=== PATIENT | male | born 1970 | race Caucasian/White ===

== ENCOUNTER 2017-02-08 19:16 | Emergency (ER) | payer OTHER ==
[~2017-02-08] VITALS: Ht 172.7 cm; Wt 81.6 kg
[~2017-02-08 19:16] MED LIST: BACTROBAN OINT22 GM PO; CYCLOBENZAPRINE5 M3 PO; HYDROCODONE BIT1 T11 PO; KEFLEX500 MG PO; LISINOPRIL-HCTZ 10-1; LISINOPRIL10 MG PO; LORAZEPAM1 MG PO; MOTRIN800 MG PO; Motrin,Rufen800 MG PO; NEURONTIN100 MG PO; NEURONTIN300 MG PO; NORCO 325 MG-51 TAB PO; PERCOCET 325 MG1 TAB PO; ROBITUSSIN AC 10 MG/ PO; ULTRAM50 MG PO; ZITHROMAX Z PA250 MG PO
[2017-02-08] MEDS ORDERED: PROZAC40 M1 PO (19:21)
[2017-02-08] MEDS ORDERED: HYDR25T PO (19:21)
[2017-02-08 19:39] LABS: BASO % 0.2 % (0.0-1.0); EOS # 0.2 10*3/uL (0.0-0.4); EOS % 1.1 % (1.0-4.0); HEMATOCRIT 35.6 % (42.0-52.0); HEMOGLOBIN 12.3 g/dl (14.0-18.0); IG # 0.1 10*3/uL (0.0-0.1); LYMPH # 2.7 10*3/uL (1.3-4.4); LYMPH % 16.4 % (27.0-41.0); MEAN CELL VOLUME 94.9 fl (80.0-94.0); MEAN CORPUSCULAR HGB 32.8 pg (27.0-31.0); MEAN CORPUSCULAR HGB CONC 34.6 g/dl (33.0-37.0); MEAN PLATELET VOLUME 8.4 fl (9.6-12.3); MONO % 6.1 % (3.0-9.0); NEUT # 12.6 10*3/uL (2.3-7.9); NEUT % 75.5 % (47.0-73.0); PLATELET COUNT AUTOMATED 398 10*3/uL (130-400); RED BLOOD COUNT 3.75 10*6/uL (4.50-5.90); RED CELL DISTRI WIDTH 11.7 % (0-14.5); WHITE BLOOD COUNT 16.7 10*3/uL (4.8-10.8)
[2017-02-08 19:53] LABS: ALBUMIN 3.8 gm/dl (3.1-4.5); ALKALINE PHOSPHATASE 68 U/L (45-117); BILIRUBIN, TOTAL 0.1 mg/dl (0.2-1.0); BUN 14 mg/dl (7-24); CARBON DIOXIDE 25 mmol/L (21-32); CHLORIDE 105 mmol/L (98-107); EST GLOM FILT AFRICAN AMERICAN > 60 ml/min; GLUCOSE 206 mg/dL (65-99); POTASSIUM 3.5 mmol/L (3.5-5.1); SGOT/AST 28 IU/L (3-35); SGPT/ALT 39 U/L (12-78); SODIUM 141 mmol/L (136-145); TOTAL PROTEIN 6.8 gm/dL (6.4-8.2)
[2017-02-08 19:59] LABS: BILIRUBIN NEGATIVE (NEGATIVE); BLOOD NEGATIVE (NEGATIVE); CLARITY CLEAR (CLEAR); COLOR YELLOW (YELLOW); GLUCOSE NEGATIVE (NEGATIVE); KETONE NEGATIVE (NEGATIVE); LEUKO ESTERASE NEGATIVE (NEGATIVE); NITRITE NEGATIVE (NEGATIVE); PROTEIN NEGATIVE (NEGATIVE); SPECIFIC GRAVITY 1.015 (1.005-1.030); UROBILINOGEN 0.2 E.U./dl (0.2-1.0)
[2017-02-08 20:04] LABS: BACTERIA TRACE; EPITHELIAL CELLS 0-2; URINE REFLEX COMMENT NO (NO)
[2017-02-08 20:13] LABS: URINE AMPHETAMINES < 1000 (1000ng/ml); URINE BARBITURATES < 200 (200ng/ml)
[2017-02-08 20:16] LABS: URINE COCAINE < 300 (300ng/ml)
[2017-02-09 01:00] VITALS: BP 146/78
== END 2017-02-09 03:18 | disposition home or self-care (01) ==
LOC: ED 19:16
PROVIDERS: Emergency Medicine
DX: T50.901A Poisoning by unspecified drugs, medicaments and biological substances, accidental (unintentional), initial encounter (principal); R40.20 Unspecified coma; Z88.0 Allergy status to penicillin; Z79.899 Other long term (current) drug therapy; Y92.9 Unspecified place or not applicable

== ENCOUNTER 2017-02-12 14:00 | Emergency (ER) | payer OTHER ==
[~2017-02-12] VITALS: Ht 172.7 cm; Wt 74.8 kg
[~2017-02-12 14:00] MED LIST changes: +HYDR25T PO; +PROZAC40 M1 PO
[2017-02-12 15:17] LABS: BASO % 0.2 % (0.0-1.0); EOS # 0.1 10*3/uL (0.0-0.4); EOS % 1.1 % (1.0-4.0); HEMATOCRIT 37.8 % (42.0-52.0); HEMOGLOBIN 13.1 g/dl (14.0-18.0); IG # 0.1 10*3/uL (0.0-0.1); LYMPH # 2.8 10*3/uL (1.3-4.4); LYMPH % 21.1 % (27.0-41.0); MEAN CELL VOLUME 95.2 fl (80.0-94.0); MEAN CORPUSCULAR HGB CONC 34.7 g/dl (33.0-37.0); MEAN PLATELET VOLUME 8.7 fl (9.6-12.3); MONO # 0.9 10*3/uL (0.1-1.0); MONO % 7.1 % (3.0-9.0); NEUT # 9.2 10*3/uL (2.3-7.9); NEUT % 69.9 % (47.0-73.0); PLATELET COUNT AUTOMATED 419 10*3/uL (130-400); RED BLOOD COUNT 3.97 10*6/uL (4.50-5.90); RED CELL DISTRI WIDTH 11.7 % (0-14.5); WHITE BLOOD COUNT 13.1 10*3/uL (4.8-10.8)
[2017-02-12 15:25] LABS: INTERNATIONAL NORM RATIO 0.9 (2.0-3.5); PROTHROMBIN TIME 9.7 SECONDS (9.0-12.4)
[2017-02-12 15:32] LABS: ALBUMIN 3.8 gm/dl (3.1-4.5); ALKALINE PHOSPHATASE 80 U/L (45-117); BILIRUBIN, TOTAL 0.2 mg/dl (0.2-1.0); BUN 9 mg/dl (7-24); C-REACTIVE PROTEIN < 0.29 MG/DL (0-0.3); CARBON DIOXIDE 27 mmol/L (21-32); CHLORIDE 110 mmol/L (98-107); CPK 73 U/L (39-308); EST GLOM FILT AFRICAN AMERICAN > 60 ml/min; GLUCOSE 99 mg/dL (65-99); POTASSIUM 3.6 mmol/L (3.5-5.1); SGOT/AST 12 IU/L (3-35); SGPT/ALT 27 U/L (12-78); SODIUM 143 mmol/L (136-145); TOTAL PROTEIN 7.1 gm/dL (6.4-8.2); TROPONIN I < 0.015 ng/ml (<0.045)
[2017-02-12 15:33] LABS: HEMOGLOBIN A1c 5.7 % (4.8-5.6)
[2017-02-12 15:37] LABS: THYROID STIM HORMONE (HS) 0.229 uIU/ml (0.358-4.75)
[2017-02-12 16:20] LABS: BILIRUBIN NEGATIVE (NEGATIVE); BLOOD NEGATIVE (NEGATIVE); CLARITY CLEAR (CLEAR); COLOR YELLOW (YELLOW); GLUCOSE NEGATIVE (NEGATIVE); KETONE NEGATIVE (NEGATIVE); LEUKO ESTERASE NEGATIVE (NEGATIVE); NITRITE NEGATIVE (NEGATIVE); PH 5.5 (5.0-9.0); PROTEIN NEGATIVE (NEGATIVE); SPECIFIC GRAVITY 1.015 (1.005-1.030); UROBILINOGEN 0.2 E.U./dl (0.2-1.0)
[2017-02-12 16:29] LABS: MUCOUS TRACE; URINE AMPHETAMINES < 1000 (1000ng/ml); URINE BARBITURATES < 200 (200ng/ml); URINE COCAINE < 300 (300ng/ml); URINE REFLEX COMMENT NO (NO)
[2017-02-12 17:09] VITALS: BP 127/82
== END 2017-02-12 17:56 | disposition home or self-care (01) ==
LOC: ED 14:00
PROVIDERS: Internal Medicine
DX: R41.82 Altered mental status, unspecified (principal); R53.83 Other fatigue; F17.200 Nicotine dependence, unspecified, uncomplicated; Z88.0 Allergy status to penicillin; Z79.899 Other long term (current) drug therapy

== ENCOUNTER → 2017-03-05 | Outpatient (CLI) | payer OTHER | END | disposition home or self-care (01) | LOC: CARD 02:50 | DX: I49.9 Cardiac arrhythmia, unspecified (principal); I25.2 Old myocardial infarction; I08.1 Rheumatic disorders of both mitral and tricuspid valves ==

== ENCOUNTER → 2017-03-23 | Outpatient (CLI) | payer OTHER ==
[~2017-03-23] MED LIST changes: +IBU800 MG PO
--- NOTE | ~2017-03-23 | ST ---
[place], [place] EXERCISE STRESS TEST REPORT NAME: PATI WILLIS [facility] #: [id number] UNIT #: [id number] ROOM: DOCTOR: GEETA MEMBRENO MD BIRTHDATE: [birth year] DOS: 03/23/2017 INDICATIONS: Palpitations, abnormal resting electrocardiogram. PROCEDURE: The patient exercised on a full [place] protocol for 12 minutes and achieved a maximum heart rate of 154, which was 88% of his maximum predicted heart rate at a workload of 12.5 mets. His resting blood pressure 130/78, beltran to 180/82. He had no diagnostic electrocardiographic changes and no chest pain or arrhythmias with the test. One minute prior to completion of the exercise protocol, he was given radionuclide intravenously. Dow treadmill score is 12.0 consistent with a low risk for future cardiac events. IMPRESSION: 1. Excellent exercise capacity. 2. Dow treadmill score 12.0 consistent with low risk. 3. Radionuclide was administered. Please see the separate imaging report for further details of the patient's stress test results. GEETA MEMBRENO MD CM:STRESS:EXERCISE STRESS TEST REPORT [id number] GEETA MEMBRENO MD
--- NOTE | 2017-03-23 11:30 | NUR ---
INFORMED CONSENT OBTAINED FOR EXERCISE CARDIOLITE STRESS TEST WITH DR. MEMBRENO. RESTING EKG NSR WITH A RESTING HR OF 67 WITH BP OF 130/78 AND HR OF 60 WITH BP OF 128/80 IN STANDING POSITION. PT COMPLETED A TOTAL OF 12:00 OF A PRISCILLA PROTOCOL WITH COMPLETION OF STAGE IV AT 4.2 MPH AND 16% GRADE. REACHED A PEAK HR OF 154 WHICH IS 88% OF PREDICTED MAX WITH A PEAK BP OF 180/82. TEST TERMINATED BECAUSE OF FATIGUE. HAD NO CHEST PAIN OR ANY EKG CHANGES. HAS A HIGH EXERCISE TOLERANCE. LAST RECOVERY HR OF 89 WITH BP OF 154/84. AWAITING SCANNING IN STABLE CONDITION.
== END | disposition home or self-care (01) ==
LOC: CARD 02:51
DX: R94.31 Abnormal electrocardiogram [ECG] [EKG] (principal)

== ENCOUNTER → 2017-05-08 | Outpatient (CLI) | payer OTHER ==
[2017-05-08 16:47] LABS: BASO % 0.3 % (0.0-1.0); EOS # 0.3 10*3/uL (0.0-0.4); EOS % 3.1 % (1.0-4.0); HEMATOCRIT 39.8 % (42.0-52.0); HEMOGLOBIN 13.7 g/dl (14.0-18.0); LYMPH # 3.6 10*3/uL (1.3-4.4); LYMPH % 41.2 % (27.0-41.0); MEAN CELL VOLUME 95.7 fl (80.0-94.0); MEAN CORPUSCULAR HGB 32.9 pg (27.0-31.0); MEAN CORPUSCULAR HGB CONC 34.4 g/dl (33.0-37.0); MEAN PLATELET VOLUME 8.9 fl (9.6-12.3); MONO # 0.9 10*3/uL (0.1-1.0); MONO % 9.9 % (3.0-9.0); NEUT % 44.9 % (47.0-73.0); PLATELET COUNT AUTOMATED 355 10*3/uL (130-400); RED BLOOD COUNT 4.16 10*6/uL (4.50-5.90); RED CELL DISTRI WIDTH 11.8 % (0-14.5); WHITE BLOOD COUNT 8.8 10*3/uL (4.8-10.8)
== END | disposition home or self-care (01) ==
LOC: LAB 16:28
PROVIDERS: Nurse Practitioner Primary Care
DX: J40 Bronchitis, not specified as acute or chronic (principal); I10 Essential (primary) hypertension; F17.200 Nicotine dependence, unspecified, uncomplicated; R09.89 Other specified symptoms and signs involving the circulatory and respiratory systems

== ENCOUNTER 2019-05-05 12:08 | Inpatient (IN) | payer OTHER ==
[~2019-05-05] VITALS: Ht 171.4 cm; Wt 89.1 kg
[2019-05-05 12:38] LABS: HEMATOCRIT 41.8 % (42.0-52.0); MEAN CELL VOLUME 98.4 fl (80.0-94.0); MEAN CORPUSCULAR HGB 32.9 pg (27.0-31.0); MEAN CORPUSCULAR HGB CONC 33.5 g/dl (33.0-37.0); MEAN PLATELET VOLUME 9.4 fl (9.6-12.3); PLATELET COUNT AUTOMATED 399 10*3/uL (130-400); RED BLOOD COUNT 4.25 10*6/uL (4.50-5.90); WHITE BLOOD COUNT 16.8 10*3/uL (4.8-10.8)
[2019-05-05 13:09] LABS: PLATELET SUFFICIENCY NORMAL (NORMAL); TOTAL CELLS COUNTED 100 #CELLS
[2019-05-05 18:00] VITALS: BP 142/96
--- NOTE | 2019-05-05 18:00 | NUR ---
A 49, admitted to 5E, under the services of ALFRED Maza MD with a diagnosis of CELLULITIS RIGHT AXILLA,SEPSIS. Chief complaint is CELLULITIS. Patient arrived via stretcher from [place]. Monitor applied. Initial assessment completed. Vital signs taken and recorded. DR. BRETT BARRERA,ALFRED notified of admission to the unit. Orders received. See assessment for past medical history, medications and allergies. Patient and/or family oriented to unit. [address] visitation policy reviewed. Clothing/patient valuable form completed. JOSE HOWE
[2019-05-05] MEDS ORDERED: BUSPAR15 MG PO (18:25)
[2019-05-05] MEDS ORDERED: PROTONIX40 MG PO (18:28)
[2019-05-05] MEDS ORDERED: ZESTRIL20 MG PO (18:30)
[2019-05-05] MEDS ORDERED: CYMBALTA60 MG PO (18:34)
[2019-05-05] MEDS ORDERED: CYCLOBENZAPRINE10 MG PO (18:35)
[2019-05-05] MEDS ORDERED: PREDNISONE5 MG PO (18:36)
[2019-05-05] MEDS ORDERED: CELEBREX100 MG PO (18:37)
[2019-05-05] MEDS ORDERED: LOPRESSOR25 MG PO (18:39)
--- NOTE | 2019-05-05 19:00 | NUR ---
PHOTO TAKEN OF CELLULITIS AREA TO RIGHT AXILLA
[2019-05-05 20:00] VITALS: BP 133/89
[2019-05-05 21:52] LABS: BUN 10 mg/dl (7-24); CHLORIDE 107 mmol/L (98-107); CREATININE 0.96 mg/dL (0.70-1.30); POTASSIUM 3.7 mmol/L (3.5-5.1); SODIUM 137 mmol/L (136-145)
[2019-05-06] VITALS: BP 126/84
[2019-05-06 06:36] LABS: BASO # 0.1 10*3/uL (0.0-0.1); BASO % 0.4 % (0.0-1.0); EOS # 0.3 10*3/uL (0.0-0.4); EOS % 2.7 % (1.0-4.0); LYMPH # 2.4 10*3/uL (1.3-4.4); LYMPH % 20.6 % (27.0-41.0); MEAN CELL VOLUME 99.5 fl (80.0-94.0); MEAN CORPUSCULAR HGB 33.2 pg (27.0-31.0); MEAN CORPUSCULAR HGB CONC 33.3 g/dl (33.0-37.0); MEAN PLATELET VOLUME 8.8 fl (9.6-12.3); MONO % 8.5 % (3.0-9.0); NEUT # 7.6 10*3/uL (2.3-7.9); NEUT % 66.6 % (47.0-73.0); PLATELET COUNT AUTOMATED 360 10*3/uL (130-400); RED BLOOD COUNT 3.92 10*6/uL (4.50-5.90); RED CELL DISTRI WIDTH 12.2 % (0-14.5); WHITE BLOOD COUNT 11.4 10*3/uL (4.8-10.8)
--- NOTE | 2019-05-06 06:38 | NUR ---
CONSULT CALLED TO DR NO
[2019-05-06 06:46] LABS: ALBUMIN 3.2 gm/dl (3.1-4.5); CHLORIDE 105 mmol/L (98-107); POTASSIUM 4.2 mmol/L (3.5-5.1); SODIUM 138 mmol/L (136-145)
[2019-05-06 06:54] LABS: ALKALINE PHOSPHATASE 93 U/L (45-117); BUN 10 mg/dl (7-24); CHOLESTEROL 203 mg/dL (<200); HDL CHOLESTEROL 35 mg/dl (40-60); LDL CHOLESTEROL 127 mg/dL (9-159); PHOSPHOROUS 3.3 mg/dL (2.5-4.9); SGOT/AST 25 IU/L (3-35); SGPT/ALT 39 U/L (12-78); TRIGLYCERIDES 205 mg/dl (<150); VLDL CHOLESTEROL 41 mg/dL (6-40)
--- NOTE | 2019-05-06 07:15 | NUR ---
Spoke with Dr. Burnett regarding patient he stated to keep patient NPO and will evaluate when he gets here.
[2019-05-06 08:00] VITALS: BP 136/88
--- NOTE | 2019-05-06 08:07 | NUR ---
PATI WILLIS [id number] Please refer to the physician's history and physical for past medical history, comorbid conditions, and allergies. Diagnosis: CELLULITIS OF AXILLA,RIGHT Estiven Score: 22,LOW OR NO RISK WOUND DESCRIPTIONS: Wound Number: 1 Location of the wound: right below axilla Thickness: Partial Size: 12.5cm x 13.0cm x <0.1cm Tunneling: none Undermining: none Sinus Tract: none Presence of Exudate: none Amount: None Color: Red Odor: None Periwound Skin Appearance: Induration Wound edges: closed at time of assessment Pain (associated with wound): tender to touch How does patient state this happened? pt stated this started on sunday as redness and the lump just keeps getting bigger he was seen by Dr. Roberts yesterday and he sent him into the hosptial to be evaluated. He stated he has never had anything like this before. He denied having history of MRSA or being bit by anything. Surface the patient is resting on: Isoflex SKIN PREVENTION RECOMMENDATION: 1. Pressure redistribution support surface as appropriate 2. Elevate heels 3. Remove boots/TEDS every shift and reapply 4. Head of bed 30 degrees as tolerated 5. Assess nutrition and hydration 6. Manage moisture 7. Avoid the use of containment devices while in bed 8. Use absorptive products on surfaces limit layers of linens on bed 9. Turn and reposition every 1-2 hours in bed and every 1 hour in chair as tolerated 10. Weight shifts every 15 minutes while up in chair 11. Offloading with pillows or device to keep heels elevated off bed 12. Monitor skin at least every shift 13. Inspect under medical devices twice a day WOUND TREATMENT RECOMMENDATIONS: Dr. Burnett already consulted for area. Warm compress QID until evaluated by Dr. Burnett.
--- NOTE | 2019-05-06 09:04 | NUR ---
Dr. Melendrez notified of wound care recommendations.
--- NOTE | 2019-05-06 10:48 | NUR ---
PT MEDICATED FOR PAIN OF 10/10 TO RIGHT AXILLA AT THIS TIME. IV MS GIVEN WILL CONT TO MONITOR. CALL LIGHT IN REACH.
--- NOTE | 2019-05-06 11:10 | NUR ---
BEDSIDE I&D PERFORMED BY DR NO. PT TOLERATED WELL. PHOTOS OBTAINED.
--- NOTE | 2019-05-06 11:48 | NUR ---
PT STATES PAIN HAS SUBSIDED AFTER MS. WILL CONT TO MONITOR. CALL LIGHT IN REACH.
[2019-05-06 12:00] VITALS: BP 131/78
--- NOTE | 2019-05-06 12:13 | NUR ---
PT STATES PAIN COMING BACK TO RIGHT AXILLA OF 02/05. NORCO GIVEN AT THIS TIME PER REQUEST. WILL CONT TO MONITOR. CALL LIGHT IN REACH.
--- NOTE | 2019-05-06 13:33 | NUR ---
Production Staff Worker in to talk to patient. Patient states lives at HOME with . There are FEW steps in the home. Physician: LUDY JIMENEZ Pharmacy: [facility] health services: NONE Patient's level of ADLs: INDEPENDENT Patient has working utilities: YES DME: NONE Follow-up physician's appointment after d/c: WILL BE MADE BY HOSPITALIST NURSE DIRECTOR ON DISCHARGE Does patient want to access PORTAL?: NO Discharge plan PT LIVES AT HOME WITH HSUBAND AND IS INDEPENDENT IN HER CARE. STATES SHE WILL HAVE ANY NEEDS ON DISCHARGE. PT WILL RETURN HOME WHEN MEDICALLY STABLE. WILL CONTINUE TO FOLLOW. WILL TAKE HER HOME ON DISCHARGE.. BRIAN SALAMANCA
[2019-05-06 16:00] VITALS: BP 122/77; BP 127/64
[2019-05-06 20:00] VITALS: BP 134/80
--- NOTE | 2019-05-06 20:03 | NUR ---
VANC STARTED AT THIS TIME. PATIENT C/O IV BURNING. THIS NURSE OFFERED TO CHANGE SITE MULTIPLE TIMES, PATIENT DENIES.STATES HE DOESNT WANT STUCK AGAIN. IV FLUSHES EASY AND NO REDENESS NOTED. INFUSION SLOWED DOWN. WILL CONTINUE TO MONITOR.
--- NOTE | 2019-05-06 20:10 | NUR ---
PATIENT REQUESTING BOTH NORCO AND MORPHINE TO BE GIVEN AT THE SAME TIME. EXPLAINED TO PATIENT IF THE NORCO IS NOT EFFECTIVE WE CAN TRY THE MORPHINE BUT BOTH CAN NOT BE GIVEN TOGETHER AT THE SAME TIME. PATIENT MEDICATED WITH NORCO AT THIS TIME FOR COMPLAINTS OF RIGHT AXILLARY PAIN. RATES 02/05. WILL CHECK EFFECTIVENESS.
--- NOTE | 2019-05-06 23:14 | NUR ---
PATIENT STILL C/O RIGHT AXILLARY PAIN. STATES NORCO WASNT EFFECTIVE. RATES PAIN 9/10. MEDICATED WITH IV MORPHINE. WILL CHECK EFFECTIVENESS.
[2019-05-07] VITALS: BP 134/77
--- NOTE | 2019-05-07 05:04 | NUR ---
Patient stated that he will follow up in the wound care center next sunday with Dr. Burnett.
[2019-05-07 06:26] LABS: BASO # 0.1 10*3/uL (0.0-0.1); BASO % 0.7 % (0.0-1.0); EOS # 0.3 10*3/uL (0.0-0.4); EOS % 3.1 % (1.0-4.0); HEMATOCRIT 38.2 % (42.0-52.0); HEMOGLOBIN 12.4 g/dl (14.0-18.0); LYMPH # 2.4 10*3/uL (1.3-4.4); LYMPH % 26.4 % (27.0-41.0); MEAN CELL VOLUME 100.8 fl (80.0-94.0); MEAN CORPUSCULAR HGB 32.7 pg (27.0-31.0); MEAN CORPUSCULAR HGB CONC 32.5 g/dl (33.0-37.0); MEAN PLATELET VOLUME 8.8 fl (9.6-12.3); MONO # 0.8 10*3/uL (0.1-1.0); MONO % 9.4 % (3.0-9.0); NEUT # 5.3 10*3/uL (2.3-7.9); NEUT % 58.8 % (47.0-73.0); PLATELET COUNT AUTOMATED 371 10*3/uL (130-400); RED BLOOD COUNT 3.79 10*6/uL (4.50-5.90); RED CELL DISTRI WIDTH 11.9 % (0-14.5)
[2019-05-07 06:53] LABS: BUN 14 mg/dl (7-24); CHLORIDE 105 mmol/L (98-107); CREATININE 0.82 mg/dL (0.70-1.30); POTASSIUM 4.4 mmol/L (3.5-5.1); SODIUM 137 mmol/L (136-145)
[2019-05-07 06:54] LABS: ACT PARTIAL THROMBO TIME 27.9 SECONDS (20.0-32.1); INTERNATIONAL NORM RATIO 0.9 (2.0-3.5)
--- NOTE | 2019-05-07 08:21 | NUR ---
PT MEDICATED WITH PRN MORPHINE AT 0821 FOR C/O RIGHT AXILLA PAIN. PT RATES PAIN 04/08. WILL REACCESS.
--- NOTE | 2019-05-07 09:04 | NUR ---
Follow up with Dr. Burnett in wound care clinic on 05/13/19 at 10:30am, call [phone] with any concerns
[2019-05-07 12:00] VITALS: BP 126/99
--- NOTE | 2019-05-07 12:28 | NUR ---
PT CONTINUES TO DENY NEEDS AT HOME. WILL CONTINUE TO FOLLOW.
[2019-05-07 16:00] VITALS: BP 125/46
[2019-05-07 20:00] VITALS: BP 130/83
--- NOTE | 2019-05-07 21:02 | NUR ---
MORPHINE GIVEN FOR PAIN RATED "7 OR 8" ON 0-10 SCALE IN RT AXILLA AREA. CALL LIGHT IN REACH. WILL MONITOR.
--- NOTE | 2019-05-07 23:21 | NUR ---
PT C/O PAIN UNDER ARMPIT AND LOWER BACK RATING IT AN 8/10 ON THE PAIN SCALE. MEDICATED WITH PRN NORCO. WILL CHECK EFFECTIVENESS. CALL LIGHT WITHIN REACH.
[2019-05-08] VITALS: BP 135/88
--- NOTE | 2019-05-08 00:15 | NUR ---
PT STATES PAIN MED WAS EFFECTIVE RATING PAIN A 5/1O. WILL CONTINUE TO MONITOR. CALL LIGHT WITHIN REACH.
--- NOTE | 2019-05-08 02:02 | NUR ---
Patient sleeping. Respirations relaxed and easy. No signs of distress noted. Siderails up. Wheelocks on. BARBARA DIAZ
[2019-05-08 06:40] LABS: BASO % 0.5 % (0.0-1.0); EOS # 0.2 10*3/uL (0.0-0.4); EOS % 2.8 % (1.0-4.0); HEMATOCRIT 37.5 % (42.0-52.0); HEMOGLOBIN 12.5 g/dl (14.0-18.0); LYMPH # 2.6 10*3/uL (1.3-4.4); LYMPH % 34.8 % (27.0-41.0); MEAN CELL VOLUME 98.2 fl (80.0-94.0); MEAN CORPUSCULAR HGB 32.7 pg (27.0-31.0); MEAN CORPUSCULAR HGB CONC 33.3 g/dl (33.0-37.0); MEAN PLATELET VOLUME 8.4 fl (9.6-12.3); MONO # 0.8 10*3/uL (0.1-1.0); NEUT # 3.8 10*3/uL (2.3-7.9); NEUT % 49.9 % (47.0-73.0); PLATELET COUNT AUTOMATED 369 10*3/uL (130-400); RED BLOOD COUNT 3.82 10*6/uL (4.50-5.90); RED CELL DISTRI WIDTH 11.8 % (0-14.5); WHITE BLOOD COUNT 7.6 10*3/uL (4.8-10.8)
[2019-05-08 06:51] LABS: BUN 14 mg/dl (7-24); CHLORIDE 106 mmol/L (98-107); CREATININE 0.79 mg/dL (0.70-1.30); POTASSIUM 4.2 mmol/L (3.5-5.1); SODIUM 140 mmol/L (136-145)
[2019-05-08] MEDS ORDERED: DOXYCYCLINE100 M3 PO (10:48)
--- NOTE | 2019-05-08 11:30 | NUR ---
Discharge instructions reviewed with patient/family. Patient receptive and verbalizes understanding. Follow-up care arranged. Written instructions given to patient/family. KUSUM RANDOLPH
[2019-05-08 12:00] VITALS: BP 117/85
--- NOTE | 2019-05-08 12:03 | NUR ---
PATIENT REFUSES D/C WOUND PICS. STATES THE DRESSING WAS JUST CHANGED AND HE DOES NOT WANT IT TAKEN OFF.
--- NOTE | 2019-05-08 13:11 | NUR ---
PT CONTINUES TO DENY NEEDS ON DISCHARGE. WILL CONTINUE TO FOLLOW.
== END 2019-05-08 11:40 | disposition home or self-care (01) | DRG 872 ==
LOC: ZRVPFM 12:08 → 5E 17:47
PROVIDERS: Family Medicine; Internal Medicine; Nurse Practitioner Primary Care; ADMIT Family Medicine
PROC: 0X940ZZ Drainage of Right Axilla, Open Approach (ICD-10-PCS; principal; 2019-05-07)
DX: A41.9 Sepsis, unspecified organism (principal); L03.111 Cellulitis of right axilla; L02.411 Cutaneous abscess of right axilla; I10 Essential (primary) hypertension; D75.89 Other specified diseases of blood and blood-forming organs; F41.8 Other specified anxiety disorders; B95.62 Methicillin resistant Staphylococcus aureus infection as the cause of diseases classified elsewhere; F17.210 Nicotine dependence, cigarettes, uncomplicated; K21.9 Gastro-esophageal reflux disease without esophagitis; I25.2 Old myocardial infarction; Z82.49 Family history of ischemic heart disease and other diseases of the circulatory system; Z88.0 Allergy status to penicillin; Z91.030 Bee allergy status; Z79.899 Other long term (current) drug therapy; Z71.6 Tobacco abuse counseling

== ENCOUNTER 2019-05-15 17:50 | Inpatient (IN) | payer OTHER ==
[~2019-05-15] VITALS: Ht 170.1 cm; Wt 88.6 kg
[2019-05-15 17:53] VITALS: BP 156/102
[2019-05-15 18:46] LABS: BASO # 0.1 10*3/uL (0.0-0.1); BASO % 0.4 % (0.0-1.0); EOS # 0.2 10*3/uL (0.0-0.4); EOS % 1.3 % (1.0-4.0); LYMPH # 3.8 10*3/uL (1.3-4.4); LYMPH % 26.1 % (27.0-41.0); MEAN CELL VOLUME 96.9 fl (80.0-94.0); MEAN CORPUSCULAR HGB 33.2 pg (27.0-31.0); MEAN CORPUSCULAR HGB CONC 34.2 g/dl (33.0-37.0); MEAN PLATELET VOLUME 8.8 fl (9.6-12.3); MONO # 1.1 10*3/uL (0.1-1.0); MONO % 7.4 % (3.0-9.0); NEUT # 9.1 10*3/uL (2.3-7.9); NEUT % 63.1 % (47.0-73.0); PLATELET COUNT AUTOMATED 454 10*3/uL (130-400); RED BLOOD COUNT 3.92 10*6/uL (4.50-5.90); RED CELL DISTRI WIDTH 11.9 % (0-14.5); WHITE BLOOD COUNT 14.5 10*3/uL (4.8-10.8)
[2019-05-15 19:01] LABS: ALBUMIN 3.7 gm/dl (3.1-4.5); ALKALINE PHOSPHATASE 83 U/L (45-117); BUN 16 mg/dl (7-24); CHLORIDE 109 mmol/L (98-107); CREATININE 0.85 mg/dL (0.70-1.30); POTASSIUM 3.8 mmol/L (3.5-5.1); SGOT/AST 11 IU/L (3-35); SGPT/ALT 45 U/L (12-78); SODIUM 141 mmol/L (136-145); TOTAL PROTEIN 7.2 gm/dL (6.4-8.2)
--- NOTE | 2019-05-15 19:08 | NUR ---
REPORT TO JOAN ALLEN.
[2019-05-15 20:34] VITALS: BP 113/57
[2019-05-15 20:50] VITALS: BP 136/95
--- NOTE | 2019-05-15 20:50 | NUR ---
Time: 2049 A 49 year old MALE admitted to 5E under services of DR. BRETT BARRERA,ALFRED. Pt. arrived via bed from ER. Chief complaint: ABSCESS RIGHT AXILLA. PATIENT ORIENTED TO THE FLOOR 5E, MED REC UPDATED. CALL LIGHT SYSTEM REVIEWED AND DEMONSTRATED. PATIENT BELONGING, ADVANCED DIRECTIVE, AND HEALTHY LIFESTYLES FORM COMPLETED. LUCIANA OLSEN
--- NOTE | 2019-05-15 21:10 | NUR ---
DR. SESAY AWARE THAT PATIENT IS IN THE ROOM AND MED REC IS UP-TO-DATE. CT RESULTS REVIEWED. NO FURTHER ORDER AT THIS TIME.
[2019-05-16] VITALS: BP 153/95
[2019-05-16 06:51] LABS: BASO # 0.1 10*3/uL (0.0-0.1); BASO % 0.5 % (0.0-1.0); EOS # 0.2 10*3/uL (0.0-0.4); EOS % 1.9 % (1.0-4.0); HEMATOCRIT 37.5 % (42.0-52.0); HEMOGLOBIN 12.6 g/dl (14.0-18.0); LYMPH # 4.8 10*3/uL (1.3-4.4); LYMPH % 38.3 % (27.0-41.0); MEAN CELL VOLUME 99.5 fl (80.0-94.0); MEAN CORPUSCULAR HGB 33.4 pg (27.0-31.0); MEAN CORPUSCULAR HGB CONC 33.6 g/dl (33.0-37.0); MEAN PLATELET VOLUME 8.5 fl (9.6-12.3); MONO # 0.9 10*3/uL (0.1-1.0); MONO % 7.1 % (3.0-9.0); NEUT # 6.3 10*3/uL (2.3-7.9); NEUT % 50.8 % (47.0-73.0); PLATELET COUNT AUTOMATED 381 10*3/uL (130-400); RED BLOOD COUNT 3.77 10*6/uL (4.50-5.90); RED CELL DISTRI WIDTH 12.2 % (0-14.5); WHITE BLOOD COUNT 12.5 10*3/uL (4.8-10.8)
[2019-05-16 07:01] LABS: ALBUMIN 3.1 gm/dl (3.1-4.5); ALKALINE PHOSPHATASE 77 U/L (45-117); BUN 14 mg/dl (7-24); CHLORIDE 110 mmol/L (98-107); SGOT/AST 14 IU/L (3-35); SGPT/ALT 38 U/L (12-78); SODIUM 142 mmol/L (136-145); TOTAL PROTEIN 6.3 gm/dL (6.4-8.2)
[2019-05-16 08:36] VITALS: BP 130/88
[2019-05-16 08:47] LABS: ATYPICAL LYMPHS 1 % (0-0); PLATELET SUFFICIENCY NORMAL (NORMAL); TOTAL CELLS COUNTED 100 #CELLS
[2019-05-16] MEDS ORDERED: DOXYCYCLINE100 M3 PO (09:49)
--- NOTE | 2019-05-16 12:35 | NUR ---
Clean Up Supervisor in to talk to patient. Patient states lives at HOME with . There are BASEMENT steps in the home. Physician: Eligio JIMENEZ Pharmacy: [facility] health services: NONE Patient's level of ADLs: INDEPENDENT Patient has working utilities: YES DME: NONE Follow-up physician's appointment after d/c: WILL BE MADE BY HOSPITALIST NURSE DIRECTOR ON DISCHARGE Does patient want to access PORTAL?: NO Discharge plan PT LIVES AT HOME WITH HIS AND IS INDEPENDENT IN HIS CARE. DENIES HE WILL HAVE ANY NEEDS ON DISCHARGE. PLAN IS TO RETURN HOME WHEN MEDICALLY STABLE. WILL CONTINUE TO FOLLOW.. BRIAN SALAMANCA
--- NOTE | 2019-05-16 12:41 | NUR ---
Discharge instructions reviewed with patient/family. Patient receptive and verbalizes understanding. Follow-up care arranged. Written instructions given to patient/family. SATURNINO WHITEHEAD
== END 2019-05-16 12:15 | disposition home or self-care (01) | DRG 872 ==
LOC: ED 17:50 → 5E 18:49 → EDHOLD 18:49 → 5E 20:21
PROVIDERS: Family Medicine; Physician Assistant; ADMIT Family Medicine
DX: A41.9 Sepsis, unspecified organism (principal); L02.411 Cutaneous abscess of right axilla; L03.111 Cellulitis of right axilla; I16.0 Hypertensive urgency; K21.9 Gastro-esophageal reflux disease without esophagitis; I10 Essential (primary) hypertension; F41.8 Other specified anxiety disorders; D47.3 Essential (hemorrhagic) thrombocythemia; F17.210 Nicotine dependence, cigarettes, uncomplicated; G89.29 Other chronic pain; M54.9 Dorsalgia, unspecified; D53.9 Nutritional anemia, unspecified; E87.8 Other disorders of electrolyte and fluid balance, not elsewhere classified; Z88.0 Allergy status to penicillin; Z91.030 Bee allergy status; I25.2 Old myocardial infarction; Z82.49 Family history of ischemic heart disease and other diseases of the circulatory system; Z71.6 Tobacco abuse counseling

== ENCOUNTER → 2019-05-15 | Outpatient (CLI) | payer OTHER ==
[~2019-05-15] MED LIST changes: +BUSPAR15 MG PO; +CELEBREX100 MG PO; +CYCLOBENZAPRINE10 MG PO; +CYMBALTA60 MG PO; +DOXYCYCLINE100 M3 PO; +LOPRESSOR25 MG PO; +PREDNISONE5 MG PO; +PROTONIX40 MG PO; +ZESTRIL20 MG PO
== END | disposition home or self-care (01) ==
LOC: LAB 16:17
DX: L03.111 Cellulitis of right axilla (principal)

== ENCOUNTER → 2019-06-12 | Outpatient (CLI) | payer OTHER | END | disposition home or self-care (01) | LOC: RAD 16:25 | DX: M50.322 Other cervical disc degeneration at C5-C6 level (principal); M50.323 Other cervical disc degeneration at C6-C7 level; M19.021 Primary osteoarthritis, right elbow ==

== ENCOUNTER → 2019-10-03 | Outpatient (CLI) | payer OTHER | END | disposition home or self-care (01) | LOC: MRI 08:48 | DX: S53.431A Radial collateral ligament sprain of right elbow, initial encounter (principal); S53.441A Ulnar collateral ligament sprain of right elbow, initial encounter; S56.511A Strain of other extensor muscle, fascia and tendon at forearm level, right arm, initial encounter; M19.021 Primary osteoarthritis, right elbow; M25.40 Effusion, unspecified joint; M77.11 Lateral epicondylitis, right elbow; M19.022 Primary osteoarthritis, left elbow; M25.422 Effusion, left elbow; X58.XXXA Exposure to other specified factors, initial encounter; Y93.89 Activity, other specified; Y92.89 Other specified places as the place of occurrence of the external cause; Y99.8 Other external cause status ==

== ENCOUNTER → 2020-03-31 | Outpatient (CLI) | payer OTHER | END | disposition home or self-care (01) | LOC: COVID19 10:02 | PROVIDERS: ATTEND Family Medicine | DX: Z20.828 Contact with and (suspected) exposure to other viral communicable diseases (principal) ==

== ENCOUNTER → 2020-10-19 | Outpatient (CLI) | payer OTHER | END | disposition home or self-care (01) | LOC: LAB 15:59 | PROVIDERS: ATTEND Family Medicine | DX: Z79.899 Other long term (current) drug therapy (principal) ==

== ENCOUNTER → 2020-11-05 | Outpatient (CLI) | payer OTHER | END | disposition home or self-care (01) | LOC: LAB 16:16 | PROVIDERS: ATTEND Family Medicine | DX: Z79.899 Other long term (current) drug therapy (principal) ==

== ENCOUNTER → 2020-12-06 | Outpatient (CLI) | payer OTHER | END | disposition home or self-care (01) | LOC: LAB 15:07 | PROVIDERS: ATTEND Student in an Organized Health Care Education/Training Program | DX: Z86.14 Personal history of Methicillin resistant Staphylococcus aureus infection (principal) ==

== ENCOUNTER → 2021-02-23 | Outpatient (CLI) | payer OTHER ==
[~2021-02-23] MED LIST changes: +TOPROL XL25 MG PO; +VIIBRYD20 M1 PO
== END | disposition home or self-care (01) ==
LOC: RAD 15:20
PROVIDERS: ATTEND Nurse Practitioner Family
DX: J18.9 Pneumonia, unspecified organism (principal); R43.0 Anosmia; R43.2 Parageusia; Z20.822 Contact with and (suspected) exposure to COVID-19

== ENCOUNTER → 2021-03-03 | Outpatient (CLI) | payer OTHER | END | disposition home or self-care (01) | LOC: CARD 13:48 | PROVIDERS: ATTEND Nurse Practitioner Family | DX: R06.02 Shortness of breath (principal); R05 Cough; Z72.0 Tobacco use; Z57.5 Occupational exposure to toxic agents in other industries ==

== ENCOUNTER → 2021-03-08 | Outpatient (CLI) | payer OTHER | END | disposition home or self-care (01) | LOC: CT 00:22 | PROVIDERS: ATTEND Nurse Practitioner Family | DX: R05 Cough (principal); R06.02 Shortness of breath; Z72.0 Tobacco use; Z57.5 Occupational exposure to toxic agents in other industries ==

== ENCOUNTER → 2021-03-29 | Outpatient (CLI) | payer OTHER | END | disposition home or self-care (01) | LOC: CARD 03-22 00:04 | PROVIDERS: ATTEND Internal Medicine Cardiovascular Disease | DX: R06.00 Dyspnea, unspecified (principal); R06.02 Shortness of breath ==

== ENCOUNTER → 2021-11-07 | Outpatient (CLI) | payer OTHER | END | disposition home or self-care (01) | LOC: RAD 16:38 | PROVIDERS: ATTEND Nurse Practitioner Family | DX: M79.642 Pain in left hand (principal); M79.645 Pain in left finger(s) ==

== ENCOUNTER 2022-05-26 00:51 | Emergency (ER) | payer OTHER ==
[~2022-05-26] VITALS: Ht 170.1 cm; Wt 75.8 kg
[2022-05-26 00:55] VITALS: BP 156/92
[2022-05-26 01:22] LABS: BASO % 0.4 % (0.0-1.0); EOS # 0.2 10*3/uL (0.0-0.4); EOS % 2.2 % (1.0-4.0); HEMATOCRIT 42.2 % (42.0-52.0); LYMPH # 2.5 10*3/uL (1.3-4.4); LYMPH % 24.9 % (27.0-41.0); MEAN CORPUSCULAR HGB 34.8 pg (27.0-31.0); MEAN CORPUSCULAR HGB CONC 34.8 g/dl (33.0-37.0); MEAN PLATELET VOLUME 8.6 fl (9.6-12.3); MONO # 0.7 10*3/uL (0.1-1.0); MONO % 6.6 % (3.0-9.0); NEUT # 6.5 10*3/uL (2.3-7.9); NEUT % 64.5 % (47.0-73.0); PLATELET COUNT AUTOMATED 355 10*3/uL (130-400); RED BLOOD COUNT 4.22 10*6/uL (4.50-5.90); RED CELL DISTRI WIDTH 12.1 % (0-14.5); WHITE BLOOD COUNT 10.1 10*3/uL (4.8-10.8)
[2022-05-26 01:33] LABS: BUN 11 mg/dl (7-24); CHLORIDE 112 mmol/L (98-107); CREATININE 0.78 mg/dL (0.70-1.30); POTASSIUM 4.3 mmol/L (3.5-5.1); SODIUM 146 mmol/L (136-145)
[2022-05-26 01:36] LABS: CPK 303 U/L (39-308)
[2022-05-26] MEDS ORDERED: HYDROCODONE-AC1 EAC1 PO (01:49)
== END 2022-05-26 01:58 | disposition home or self-care (01) ==
LOC: ED 00:51
PROVIDERS: Internal Medicine
DX: S22.41XA Multiple fractures of ribs, right side, initial encounter for closed fracture (principal); F10.90 Alcohol use, unspecified, uncomplicated; F17.210 Nicotine dependence, cigarettes, uncomplicated; Z88.0 Allergy status to penicillin; Z91.030 Bee allergy status; Z79.899 Other long term (current) drug therapy; Z98.890 Other specified postprocedural states; Y90.9 Presence of alcohol in blood, level not specified; W17.89XA Other fall from one level to another, initial encounter; Y93.89 Activity, other specified; Y92.89 Other specified places as the place of occurrence of the external cause; Y99.8 Other external cause status

== ENCOUNTER → 2022-06-01 | Outpatient (CLI) | payer OTHER ==
[~2022-06-01] MED LIST changes: +HYDROCODONE-AC1 EAC1 PO
== END | disposition home or self-care (01) ==
LOC: RAD 12:09
PROVIDERS: ATTEND Nurse Practitioner Family
DX: S22.41XD Multiple fractures of ribs, right side, subsequent encounter for fracture with routine healing (principal); R26.2 Difficulty in walking, not elsewhere classified; X58.XXXD Exposure to other specified factors, subsequent encounter

== ENCOUNTER → 2024-06-13 | Outpatient (CLI) | payer OTHER ==
[~2024-06-13] MED LIST changes: +IOHEXOL 350 MG/ML 100 ML VIAL IV ONE; +SODIUM CHLORIDE 0.9% 100 ML BAG IV ONE; +SODIUM CHLORIDE 0.9% 100 ML IV ONE
== END | disposition home or self-care (01) ==
LOC: CT 08:41
PROVIDERS: ATTEND Psychiatry & Neurology Neurology
DX: I77.71 Dissection of carotid artery (principal)